=== PATIENT | female | born 1940 | race Caucasian/White ===

== ENCOUNTER → 2018-03-03 | Outpatient (CLI) | payer MEDICARE, OTHER ==
[~2018-03-03] MED LIST: BONIVA150 MG PO; MACROBID 100 M100 M1 PO; PRAVASTATIN SOD20 MG PO; REGLAN 10 MG TA10 MG PO; REQUIP 1 MG TABL1 M1 PO; TRAZODONE 150150 M1 PO; WELLBUTRIN XL300 M2 PO; XALATAN2.5 ML OPHTHALMIC
== END ==
LOC: M.RAD 12:52
DX: Z12.31 Encounter for screening mammogram for malignant neoplasm of breast (principal)

== ENCOUNTER → 2020-03-07 | Outpatient (CLI) | payer MEDICARE, OTHER | LOC: M.RAD 13:00 | PROVIDERS: ATTEND Registered Nurse Diabetes Educator | DX: Z12.31 Encounter for screening mammogram for malignant neoplasm of breast (principal) ==

== ENCOUNTER → 2020-03-14 | Outpatient (CLI) | payer MEDICARE, OTHER | LOC: M.RAD 14:00 | PROVIDERS: ATTEND Radiology Diagnostic Radiology | DX: R92.1 Mammographic calcification found on diagnostic imaging of breast (principal) ==

== ENCOUNTER → 2020-03-15 | Outpatient (CLI) | payer MEDICARE, OTHER ==
--- NOTE | 2020-03-17 18:06 | PATH ---
[address] [address] PATHOLOGY RPT PROCEDURE Name: CRYSTAL GOINS Room: [facility] Billy#: [id number] Admission: 03/15/20 Date of : 44 Discharge: Report #: [id number] Path Case #: [id number] [facility] Accession Number: [id number] . 01 Material submitted: . breast - LEFT BREAST CALCIFICATIONS. Modifiers: left . 02 Diagnosis: "Left breast calcifications", needle biopsy: - Benign breast with focal fibrosis, adenosis and usual duct hyperplasia with rare microcalcifications present; no cytologic atypia or malignancy seen. (See comment). LBQ 03/17/2020 0953 Local . 02 Comment: [employer] slides are co-reviewed with Dr. Ankur Rothman. Clinical and radiographic correlation is recommended. (CLW/db; 03/17/2020) . 02 Electronically signed: . Rossi Gonzalez MD, Pathologist NPI- [id number] . 01 Gross description: . The specimen is received in formalin, labeled "Crystal Goins, left breast calcifications" and consists of 7 needle cores of yellow lucas fibroadipose tissue measuring between 1.3 cm and 2.2 cm in length and 0.3 cm each in diameter which are entirely submitted in A1-A3. The specimen was collected at 11:45 AM on 03/15/2020 and placed in formalin at 11:50 AM. The cold ischemic time is 5 minutes and the total formalin fixation time is greater than 6 hours less than 72 hours. (SDY; 03/16/2020) SYU/SYU 03/16/2020 [employer] Local . 02 Pathologist provided ICD-10: N60.32, N62, R92.0 . 02 CPT . [id number] Specimen Comment: A courtesy copy of this report has been sent to [phone] Specimen Comment: [phone], Specimen Comment: Report sent to ,DR FIELDS / DR SAMUEL Performed at: [address], [place], [place] [id number] MD Michael Edwards MD Phone: [phone] Performed at: [address] [place] [address] PATHOLOGY RPT PROCEDURE Name: CRYSTAL GOINS Room: [facility]#: [id number] Admission: 03/15/20 Date of : 44 Discharge: Report #: [id number] Path Case #: [id number] [address] [place] [id number] MD Umer Shaw MD Phone: [phone]
== END | disposition home or self-care (01) ==
LOC: M.RAD 10:47
PROVIDERS: ATTEND Registered Nurse Diabetes Educator
DX: R92.0 Mammographic microcalcification found on diagnostic imaging of breast (principal); Z79.899 Other long term (current) drug therapy

== ENCOUNTER → 2021-05-09 | Outpatient (CLI) | payer MEDICARE, OTHER | LOC: M.RAD 13:40 | PROVIDERS: ATTEND Registered Nurse Diabetes Educator | DX: Z12.31 Encounter for screening mammogram for malignant neoplasm of breast (principal) ==